=== PATIENT | female | born 1990 | race Caucasian/White ===

== ENCOUNTER 2022-06-28 08:53 | Emergency (ER) | payer BC, SELFPAY ==
[2022-06-28 09:43] VITALS: BP 94/74; PULSE 91; RESP 16; TEMP 37.4; O2SAT 99
--- NOTE | 2022-06-28 10:07 | ED.URI ---
HPI - URI/Sore Throat General Chief Complaint: Upper Respiratory Infection Stated Complaint: cough, sore throat, bodyaches Time Seen by Provider: 06/28/22 10:19 Source: patient and RN notes reviewed Mode of arrival: ambulatory Limitations: no limitations History of Present Illness HPI Narrative: 31-year-old female presents with concern for 5 day history of cough sore throat, body aches. Reports her son has strep. She reports she has been taking Aleve D with relief of body aches. MD elicited complaint: cough and sore throat Related Data Home Medications Medication Instructions Recorded Confirmed levothyroxine 25 mcg tablet 25 mcg PO DAILY 06/28/22 06/28/22 venlafaxine 37.5 mg tablet 37.5 mg PO DAILY 06/28/22 06/28/22 Allergies Allergy/AdvReac Type Severity Reaction Status Date / Time No Known Allergies Allergy Unverified 06/28/22 09:38 Review of Systems Review of Systems: CONSTITUTIONAL: Reports malaise. Denies chills, sweats, or fever. EYES: Denies visual changes, redness, or discharge. ENT: Reports rhinorrhea, congestion, sore throat. Denies sinus pain, otalgia CARDIOVASCULAR: Denies chest pain, palpitations, or edema. RESPIRATORY: Reports cough. Denies dyspnea. GASTROINTESTINAL: Denies abdominal pain, nausea, vomiting, diarrhea SKIN: Denies rash or itching. MUSCULOSKELETAL: Reports myalgia. NEUROLOGIC: Denies headache. All systems reviewed & are unremarkable except as noted in HPI and below PMFSH Family History Family History (Updated 11/15/16 @ 23:56 by DOCTOR UNKNOWN) Grandparent Cerebrovascular accident Family history of coronary artery disease, Onset Age: 70 Social History Social History Smoking status: Former smoker Second hand tobacco smoke exposure: No Smoking end date: 08/11/10 Alcohol intake: never Comments At time of signature, agree with nursing past medical, surgical, social and family history. There is no relevant family history pertinent to the presenting complaint Exam Narrative: GENERAL: Nontoxic-appearing and in no acute distress. HEAD: Normocephalic EYES: PERRLA, conjunctivae clear ENT: Nares clear, turbinates edematous and erythematous, clear discharge. Mucous membranes moist. TM pearly flores with dull light reflex bilaterally; no tragal tenderness. Oropharynx not erythematous without lesions. Tonsils not enlarged and without exudate, no drooling, no hoarseness, no trismus, uvula midline. NECK: Supple. No lymphadenopathy CHEST: Clear to auscultation, breath sounds equal. No wheezing, rhonchi, rales, or stridor. No respiratory distress, speaks in full sentences. HEART: Regular rate and rhythm. No murmur heard. SKIN: Warm, dry, no rash. NEURO: Alert and oriented x3. PSYCH: Normal mood and affect Course Course Emergency Course: Patient is aware of diagnosis, understands and agrees to treatment plan. Anticipatory guidance given. Patient agrees to follow-up as directed and is aware of reasons to seek care at the emergency department. Portions of this record may have been created with voice recognition software Level of Care: Express Care Visit Vital Signs Vital signs: Vital Signs Temperature 99.3 F 06/28/22 09:43 Pulse Rate 91 06/28/22 09:43 Respiratory Rate 16 06/28/22 09:43 Blood Pressure 94/74 L 06/28/22 09:43 Pulse Oximetry 99 06/28/22 09:43 Temperature 99.3 F 06/28/22 09:43 Pulse Rate 91 06/28/22 09:43 Respiratory Rate 16 06/28/22 09:43 Blood Pressure 94/74 L 06/28/22 09:43 Pulse Oximetry 99 06/28/22 09:43 Reviewed. MDM - URI/Sore Throat MDM Narrative Medical decision making narrative: Differential diagnosis considered: Turner virus, strep pharyngitis, allergic rhinitis, upper respiratory tract infection, sinusitis, rhinosinusitis, nasopharyngitis. viral pharyngitis, otitis media, otitis externa, pneumonia, bronchitis, viral cough syndrome, viral syndrome, and influenza. Exam findings show no acute
== END 2022-06-28 10:29 | disposition home or self-care (01) ==
PROVIDERS: Emergency Provider Nurse Practitioner
DX: J06.9 Acute upper respiratory infection, unspecified (principal); R09.89 Other specified symptoms and signs involving the circulatory and respiratory systems; R05.9 Cough, unspecified; Z87.891 Personal history of nicotine dependence
CPT/HCPCS: 87081; 87880; 99213; G0463

== ENCOUNTER 2022-08-26 10:30 | Outpatient (CLI) | payer BC, SELFPAY ==
--- NOTE | ~2022-08-26 | US_ITS ---
Soft tissue ultrasound of the abdomen CLINICAL HISTORY: Palpable lump, lymph node enlargement TECHNIQUE: Targeted sonographic imaging in the left pelvis was performed at the area of palpable conc paulette. FINDINGS: The left pelvic region at the area of clinical concern, there is a 0.9 x 0.8 x 0.7 cm hypoe choic mass. Borders are minimally irregular. There is no posterior shadowing. IMPRESSION: 0.9 cm hypoechoic mass at the left pelvic region at the area of clinical concern. Sonographic imaging features are nonspecific/indeterminate. Consider pre- and postcontrast MR for further imaging evalua tion. Tissue sampling can also be performed to establish a histologic diagnosis as indicated. Reviewed, dictated and finalized at location M. ER MACHINE OPERATOR IMPRESSION: 0.9 cm hypoechoic mass at the left pelvic region at the area of clinical concer n. Sonographic imaging features are nonspecific/indeterminate. Consider pre- an d postcontrast MR for further imaging evaluation. Tissue sampling can also be p erformed to establish a histologic diagnosis as indicated.
== END 2022-08-26 10:31 | disposition home or self-care (01) ==
DX: R59.9 Enlarged lymph nodes, unspecified (principal); R19.04 Left lower quadrant abdominal swelling, mass and lump
CPT/HCPCS: 76705

== ENCOUNTER 2022-09-17 09:06 | Outpatient (CLI) | payer BC, SELFPAY ==
--- NOTE | ~2022-09-17 | MR_ITS ---
MRI of the pelvis CLINICAL HISTORY: Lymph node enlargement TECHNIQUE: Axial T1-weighted, T2-weighted, T1-weighted fat-sat, and T2 fat-sat images were performed. Coronal T2-weighted and T2 fat-sat images were performed. Correlation made with prior ultrasound dated 08/26/2022. FINDINGS: In the anterior subcutaneous soft tissues, left of midline, there is a 0.8 cm mass (series 200 image 41 for example), which is T1 hypointense, and mildly hyperintense on T2-weighted images. Si gnal characteristics and morphology suggest a minimally prominent lymph node. This lesion correlates with the prior sonographic finding. No other abnormal mass lesion identified. 2.4 cm simple appearing right ovarian cyst noted. Small amount of free fluid present in the pelvis. P robable septate uterus incidentally noted. IMPRESSION: 8 mm mass in the anterior left subcutaneous soft tissues which correlates with prior sonographic find ing. This probably represents a minimally prominent lymph node. Given the very small size of the lesi on, clinical follow-up advised. If the lesion progresses, then consider repeat evaluation. Probable septate uterus with small amount of free pelvic fluid and 2.4 centers simple right ovarian c yst. Reviewed, dictated and finalized at location M. OMER SERVICE SPECIALIST IMPRESSION: 8 mm mass in the anterior left subcutaneous soft tissues which correlates with prior sonographic finding. This probably represents a minimally prominent lymph node. Given the very small size of the lesion, clinical follow-up advised. If the lesion progresses, then consider repeat evaluation. Probable septate uterus with small amount of free pelvic fluid and 2.4 centers simple right ovarian cyst.
== END 2022-09-17 09:07 | disposition home or self-care (01) ==
DX: R59.9 Enlarged lymph nodes, unspecified (principal); R93.5 Abnormal findings on diagnostic imaging of other abdominal regions, including retroperitoneum
CPT/HCPCS: 72195

== ENCOUNTER 2024-03-30 08:37 | Outpatient (CLI) | payer OTHER, SELFPAY ==
[2024-03-30 08:54] LABS: Basophils Absolute Auto 0.03 K/mm3 (0.00-0.10); Basophils Percent Auto 0.6 % (0.0-1.0); Eosinophils Absolute Auto 0.16 K/mm3 (0.02-0.50); Eosinophils Percent Auto 2.9 % (1.0-6.0); Hematocrit 40.3 % (35.0-49.0); Hemoglobin 13.9 g/dL (12.0-15.0); Immature Granulocyte Absolute 0.01 K/mm3 (0.00-0.00); Immature Granulocyte Percent A 0.2 % (0.0-0.0); Lymphocytes Percent Auto 38.5 % (18.0-42.0); Mean Corpuscular HGB Conc 34.5 g/dL (32-36); Mean Corpuscular Hemoglobin 28.4 pg (27.0-31.0); Mean Corpuscular Volume 82.2 fL (78.0-102.0); Mean Platelet Volume 8.4 fl (9.2-11.8); Monocytes Absolute Auto 0.46 K/mm3 (0.10-0.90); Monocytes Percent Auto 8.4 % (2.0-11.0); Neutrophils Absolute Auto 2.69 K/mm3 (1.70-7.20); Neutrophils Percent Auto 49.4 % (50.0-70.0); Platelet Count Result 210 K/mm3 (150-420); Red Cell Distribution Width 12.3 % (11.6-14.4); White Blood Count 5.5 K/mm3 (4.8-10.8)
[2024-03-30 09:53] LABS: Cholesterol 268 mg/dL (0-200); Folic Acid 9.6 ng/mL (8.6->20); HDL Direct 91 mg/dL (40-60); Iron 80 ug/dL (50-170); LDL Cholesterol Calculated 167 mg/dL (<130); Magnesium 2.1 mg/dL (1.8-2.4); Percent Iron Saturation 28 % (12-57); Thyroid Stimulating Hormone 1.01 uIU/mL (0.36-3.74); Triglycerides 51 mg/dL (0-150); Vitamin B12 615 pg/mL (193-986)
== END 2024-03-30 08:38 | disposition home or self-care (01) ==
LOC: CHSLAB 08:46
PROVIDERS: PCP Family Medicine; Visit Provider Family Medicine
DX: Z13.220 Encounter for screening for lipoid disorders (principal); E03.9 Hypothyroidism, unspecified; G25.81 Restless legs syndrome; F32.A Depression, unspecified
CPT/HCPCS: 36415; 80061; 82607; 82746; 83540; 83550; 83735; 84443; 85025